=== PATIENT | male | born 1960 | race Caucasian/White ===

== ENCOUNTER 2016-11-09 17:42 | Emergency (ER) | payer OTHER ==
[2016-11-09 17:50] VITALS: BMI 34.2
[2016-11-09 18:04] VITALS: TEMP 97.5
[2016-11-09] MEDS ORDERED: Lidocaine 1% Inj (20ml) ONE (18:13)
[2016-11-09] MEDS ORDERED: Bacitracin 500 Units/gm Oint Foilpak UD ONE (18:13)
[2016-11-09] MEDS ORDERED: Lidocaine 1% Inj (20ml) INFIL ONE (18:14)
[2016-11-09] MEDS ORDERED: Bacitracin 500 Units/gm Oint Foilpak UD TOP ONE (18:15)
--- NOTE | 2016-11-09 18:15 | C.PDOC ---
History Of Present Illness 56 year old male presents to the ED with complaints of a laceration to the base of the right thumb just prior to arrival. Patient states he was carrying a mirror that broke and vcut his thumb; does not have any foreign body sensation in his hand, denies numbness, or tingling. Time Seen by Provider: 11/09/16 18:05 Chief Complaint (Nursing): Abnormal Skin Integrity History Per: Patient History/Exam Limitations: no limitations Onset/Duration Of Symptoms: Mins Current Symptoms Are (Timing): Still Present Location Of Injury: Right: Hand (palmar surface) Quality Of Symptoms: denies: Itching, Swollen Recent travel outside of the [place]: No Past Medical History Reviewed: Historical Data, Nursing Documentation, Vital Signs Vital Signs: Last Vital Signs Temp 97.5 F L 11/09/16 17:51 Pulse 79 11/09/16 19:36 Resp 18 11/09/16 19:36 BP 124/78 11/09/16 19:36 Pulse Ox 96 11/09/16 23:06 Family History: States: Unknown Family Hx - Social History Hx Tobacco Use: No Hx Alcohol Use: No Hx Substance Use: No - Immunization History Hx Tetanus Toxoid Vaccination: Yes Hx Influenza Vaccination: No Hx Pneumococcal Vaccination: No Review Of Systems Constitutional: Negative for: Fever, Chills, Sweats Cardiovascular: Negative for: Chest Pain, Palpitations Respiratory: Negative for: Cough, Shortness of Breath Gastrointestinal: Negative for: Nausea, Vomiting, Abdominal Pain, Diarrhea Musculoskeletal: Positive for: Hand Pain (laceration to base of right thumb ) Neurological: Negative for: Headache Physical Exam - Physical Exam Appears: Non-toxic, No Acute Distress Skin: Warm, Dry Head: Atraumatic Oral Mucosa: Moist Neck: Supple Chest: Symmetrical, No Deformity Cardiovascular: Rhythm Regular Respiratory: No Rales, No Stridor, No Wheezing Extremity: Normal ROM (Able to flex and extend thumb), No Tenderness, Capillary Refill (good capillary refill ), Other (profuse bleeding from the wound, 2cm shallow laceration on the palmar surface over the distal phalanx. Lateral aspect profuse arterial bleeding of the wound) Neurological/Psych: Oriented x3 ED Course And Treatment O2 Sat by Pulse Oximetry: 96 Laceration - Laceration Repair Right thumb Wound Length (In cm): 2 Description Of Wound: Linear Anesthesia: Lidocaine 1% Wound Examination: Irrigated With Saline, No FB With Wound Exploration, No Tendon Injury With Wound Exploration Wound Closure: Suture (5 stitches ) Suture Technique And Material Used: Running, Interrupted Medical Decision Making Medical Decision Making: thumb laceration with active arterial bleeding; topical lidocaine applied with cessation of bleeding. wound repair done. Disposition Counseled Patient/Family Regarding: Diagnosis, Need For Followup - Disposition Referrals: Tatianna Hinton MD [Staff Provider] - Disposition: HOME/ ROUTINE Disposition Time: 19:25 Condition: STABLE Additional Instructions: Keep wound clean and dry, and covered for next 24 hours. Change dressing., wash with soap and water and apply antibiotic ointment. Watch for any sign of infection such as redness, swelling. warmth, pus. Tylenol or motrin for pain. Follow up with Dr Hinton - hand surgeon, call for an appointment. Suture removal at your doctors office in 10 days. Instructions: Care For Your Stitches (ED), Laceration (ED) Forms: General Discharge Instructions - Clinical Impression Clinical Impression: Laceration of right thumb - Scribe Statement The provider has reviewed the documentation as recorded by the Scribe Gely Neal All medical record entries made by the Cristóbalibcassi were at my direction and personally dictated by me. I have reviewed the chart and agree that the record accurately reflects my personal performance of the history, physical exam, medical decision making, and the department course for this patient. I have also personally directed, reviewed, and agree with the discharge instructions and disposition.
[2016-11-09 19:36] VITALS: BP 124/78; PULSE 79; RESP 18
[2016-11-09 20:01] VITALS: O2SAT 96
== END 2016-11-09 19:37 | disposition home or self-care (01) ==
LOC: C.ER 17:42
DX: S61.011A Laceration without foreign body of right thumb without damage to nail, initial encounter (principal); W25.XXXA Contact with sharp glass, initial encounter; Y93.89 Activity, other specified; Y92.009 Unspecified place in unspecified non-institutional (private) residence as the place of occurrence of the external cause

== ENCOUNTER 2016-11-18 05:54 | Emergency (ER) | payer OTHER ==
[2016-11-18 05:55] VITALS: BMI 34.2
[2016-11-18 06:06] VITALS: BP 128/83; PULSE 78; RESP 18; TEMP 97.6; O2SAT 98
--- NOTE | 2016-11-18 06:28 | C.PDOC ---
History Of Present Illness Patient is a 56 year old male who presents to the ER for a suture removal; patient had sutures placed on his right thumb 8 days ago. Denies any physical complaints at this time. Time Seen by Provider: 11/18/16 06:10 Chief Complaint (Nursing): Suture/Staple Removal History Per: Patient History/Exam Limitations: no limitations Onset/Duration Of Symptoms: Days Ago Current Symptoms Are (Timing): Still Present Location Of Injury: Right: Hand (Thumb) Recent travel outside of the [place]: No Past Medical History Reviewed: Historical Data, Nursing Documentation, Vital Signs Vital Signs: Last Vital Signs Temp 97.6 F 11/18/16 06:02 Pulse 78 11/18/16 06:02 Resp 18 11/18/16 06:36 BP 128/83 11/18/16 06:02 Pulse Ox 98 11/18/16 06:40 - Medical History PMH: No Chronic Diseases Surgical History: No Surg Hx Family History: States: Unknown Family Hx - Social History Hx Tobacco Use: No Hx Alcohol Use: No Hx Substance Use: No - Immunization History Hx Tetanus Toxoid Vaccination: Yes Hx Influenza Vaccination: No Hx Pneumococcal Vaccination: No Review Of Systems Constitutional: Negative for: Fever, Chills Gastrointestinal: Negative for: Nausea, Vomiting, Diarrhea Musculoskeletal: Positive for: Other (Sutures on right thumb) Physical Exam - Physical Exam Appears: Non-toxic, No Acute Distress Skin: Normal Color, Warm, Dry Head: Atraumatic, Normacephalic Oral Mucosa: Moist Extremity: Normal ROM, No Swelling, Other (Well healing wound to the proximal phalanx at base of the first metacarpal of the palmar aspect of the right hand. ) Pulses: Left Radial: Normal, Right Radial: Normal Neurological/Psych: Oriented x3, Normal Motor, Normal Sensation ED Course And Treatment O2 Sat by Pulse Oximetry: 98 (Room air) Pulse Ox Interpretation: Normal Progress Note: sutures removed from right thumb, no wound dehiscence, no bleeding or draining. Wound care instructions were given Disposition - Disposition Referrals: FAMILY PROVIDER,NO [Primary Care Provider] - Disposition: HOME/ ROUTINE Disposition Time: 06:26 Condition: STABLE Additional Instructions: Keep wound clean May apply antibacterial cream oint Return to ER if worse Instructions: Stitches Removal (ED) - Clinical Impression Clinical Impression: Removal of suture - Scribe Statement The provider has reviewed the documentation as recorded by the Scribe Jj León All medical record entries made by the Cristóbalibcassi were at my direction and personally dictated by me. I have reviewed the chart and agree that the record accurately reflects my personal performance of the history, physical exam, medical decision making, and the department course for this patient. I have also personally directed, reviewed, and agree with the discharge instructions and disposition.
== END 2016-11-18 06:38 | disposition home or self-care (01) ==
LOC: C.ER 05:54 → SUPCPDRO 05:54 → C.ER 06:38
DX: Z48.02 Encounter for removal of sutures (principal)